=== PATIENT | female | born 1990 | race American Indian/Alaskan Native ===

== ENCOUNTER 2017-05-11 23:22 | Emergency (ER) | payer OTHER ==
[2017-05-11 23:51] VITALS: BP 104/60
[2017-05-12] MEDS ORDERED: DELTASONE PO ONE (01:10)
--- NOTE | 2017-05-12 01:10 | Emergency Department Report ---
ED Rash HPI - HPI Chief Complaint: Skin Rash Stated Complaint: BODY HIVES Time Seen by Provider: 05/12/17 01:07 Duration: 2 weeks Location: Chest, Back, Abdomen, Upper Extremities, Lower Extremities Suspected Cause: Unknown Rash Symptoms: Yes Itching (all over), No Facial Swelling, No Tongue/Oral Swelling, No Breathing Difficulties, No Choking Sensation, No Wheezing/Dyspnea, No Peeling, No Blistering, No Fever, No Lightheaded, No Malaise, No Myalgias Severity: moderate (H in. Pain is 0 out of 10) Other History: Patient he reported that she's had rash and itching over her body for 2 weeks that she doesn't know what causes it. 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 Denies any fever or chills. Pain is 0-10 but she has moderate itching. Immunizations up-to-date per patient. Denies any medical history or any surgical history. Denies any new food, medication or detergent in her environment. No [id number] medication taken. ED Review of Systems ROS: Stated complaint: BODY HIVES Other details as noted in HPI Comment: All other systems reviewed and negative Constitutional: denies: chills, fever, weakness Eyes: denies: eye pain, vision change ENT: denies: ear pain, throat pain, epistaxis, congestion Respiratory: no symptoms reported Cardiovascular: denies: chest pain, palpitations, dyspnea on exertion, orthopnea , edema, syncope Gastrointestinal: denies: abdominal pain, nausea, vomiting, diarrhea Musculoskeletal: denies: back pain, joint swelling, arthralgia, myalgia Skin: rash, pruritus Neurological: denies: headache, numbness, paresthesias, confusion, abnormal gait , vertigo ED Past Medical Hx - Past Medical History Previous Medical History?: No - Surgical History Past Surgical History?: No - Family History Family history: no significant - Social History Smoking Status: Current Every Day Smoker Substance Use Type: None Other Social History: single - Medications Home Medications: Home Medications Medication Instructions Recorded Confirmed Last Taken Type Promethazine [Phenergan] 25 mg PO Q6H PRN #10 tablet 04/11/14 Unknown Rx hydrOXYzine HCL [Atarax] 25 mg PO Q6HR PRN #12 tablet 05/12/17 Unknown Rx predniSONE [Deltasone] 50 mg PO QDAY #5 tab 05/12/17 Unknown Rx Rash Exam - Exam General: Vital signs noted. No distress. Alert and acting appropriately. This is a 26-year-old female well-nourished well-developed in no acute distress HEENT: No Periorbital Edema, No Conjuctival Injection, No Chemosis, No Perioral Edema, No Tongue Edema, No Uvular Edema, No Compromised Airway, No Drooling Lungs: Yes Good Air Exchange, No Wheezes, No Ronchi, No Stridor, No Cough, No Labored Respirations, No Retractions, No Use of Accessory Muscles, No Other Abnormal Lung Sounds Heart: Yes Regular, No Murmur Skin: Yes Maculopapular Rash (maculopapular rash scattered sparsely to posterior and anterior torso, upper and lower extremities. Induration or fluctuance.), Yes Excoriations (some excoriation due to itching and), Yes Erythema (located around some rash to torso), No Urticarial Rash, No Morbilliform rash, No Bulla(e), No Weeping, No Tenderness, No Edema, No Encrustations, No Other Other: Positive: Abdomen Normal, Neurologic Normal, Musculoskeletal Normal ED Course Vital Signs 05/11/17 23:46 Temperature 98 F Pulse Rate 81 Respiratory 16 Rate Blood Pressure 104/60 Blood Pressure 104/60 [Left] O2 Sat by Pulse 99 Oximetry - Reevaluation(s) Reevaluation #1: 05/12/17 01:46 Patient given Deltasone 60 mg by mouth. ED Medical Decision Making - Medical Decision Making ED course: Patient care complaining of rash and itching to her body 2 weeks. She does not know cause of rash but relates it to her being working in a warehouse and may be came in contact something that she is allergic to. Doesn' t have any signs of anaphylaxis. Rash is localized to anterior and posterior torso and upper and lower extremities. Discussed the patient that she will need to follow up with the creative services writer or veterans' coordinator to get skin testing. She does not have a primary care physician R access to one side told her that she needs to follow up at [facility] for further evaluation and treatment and follow-up rash. Patient voiced understanding of discharge instruction and treatment plan. He was given Deltasone 60 mg by mouth and emergency room. I encourage her to keep affected area clean and dry. Diagnostic/labs :no need for any labs or diagnostic test. Assessment/plan 1: Contact dermatitis-patient given Deltasone 60 mg at emergency room and placed on prednisone for 5 days 2:Pruritis-Atarax when necessary. Follow-up with veterans' coordinator or creative services writer. If you do not have access to do this that he can follow-up at [facility]. These keep affected area clean and dry. Take medication as prescribed Pt discharged home in stable condition with prescription for Atarax and prednisone Critical care attestation.: If time is entered above; I have spent that time in minutes in the direct care of this critically ill patient, excluding procedure time. ED Disposition Clinical Impression: Pruritic disorder Contact dermatitis Qualifiers: Contact dermatitis type: unspecified Contact dermatitis trigger: unspecified trigger Qualified Code(s): L25.9 - Unspecified contact dermatitis, unspecified cause Disposition: DC-01 TO HOME OR SELFCARE Is pt being admited?: No Does the pt Need Aspirin: No Condition: Stable Instructions: Itchy Skin (ED), Contact Dermatitis (ED) Additional Instructions: follow-up with veterans' coordinator or creative services writer to get skin testing in regard skin rash If you do not have access to veterans' coordinator or creative services writer he can follow up for [facility]. Please take medication as prescribed Keep affected area clean and dry Prescriptions: hydrOXYzine HCL [Atarax] 25 mg PO Q6HR PRN #12 tablet PRN Reason: Itching predniSONE [Deltasone] 50 mg PO QDAY #5 tab Referrals: [facility] [Outside] - 2-3 Days JOSE R WILKERSON MD [Staff Physician] - 2-3 Days Forms: Work/School Release Form(ED)
== END 2017-05-12 02:28 | disposition home or self-care (01) ==
LOC: ED 23:22
DX: L25.9 Unspecified contact dermatitis, unspecified cause (principal); L29.9 Pruritus, unspecified; F17.200 Nicotine dependence, unspecified, uncomplicated
CPT/HCPCS: 99282; J7512

== ENCOUNTER 2018-01-26 21:07 | Emergency (ER) | payer SELFPAY ==
[2018-01-26] MEDS ORDERED: ZOFRAN IV ONE (21:51)
[2018-01-26 22:02] LABS: Basophils % (Auto) 0.3 % (0.0-1.8); Eosinophils # (Auto) 0.1 K/mm3 (0.0-0.4); Eosinophils % (Auto) 1.8 % (0.0-4.3); Hematocrit 40.1 % (30.3-42.9); Hemoglobin 13.7 gm/dl (10.1-14.3); Lymphocytes # (Auto) 1.4 K/mm3 (1.2-5.4); Lymphocytes % (Auto) 18.5 % (13.4-35.0); Mean Corpuscular HGB Conc 34 % (30-34); Mean Corpuscular Hemoglobin 33 pg (28-32); Mean Corpuscular Volume 96 fl (79-97); Monocytes # (Auto) 0.7 K/mm3 (0.0-0.8); Monocytes % (Auto) 9.7 % (0.0-7.3); Platelet Count 162 K/mm3 (140-440); Red Blood Count 4.19 M/mm3 (3.65-5.03); Red Cell Distribution Width 13.3 % (13.2-15.2)
[2018-01-26 22:22] LABS: Alanine Aminotransferase 7 units/L (7-56); Albumin 4.4 g/dL (3.9-5); BUN/Creatinine Ratio 17; Blood Urea Nitrogen 12 mg/dL (7-17); Calcium 8.9 mg/dL (8.4-10.2); Hemolysis Index 4; Lipase 21 units/L (13-60)
[2018-01-27 02:01] VITALS: BP 90/49
[2018-01-27 02:42] LABS: Bilirubin,Urine NEG (Negative); Blood,Urine NEG (Negative); Color,Urine Yellow (Yellow); Mucus,Urine 3+ /HPF; Protein,Urine <15 mg/dL mg/dL (Negative); Urobilinogen,Urine < 2.0 mg/dL (<2.0)
--- NOTE | 2018-01-27 04:28 | Cat Scan Report ---
FINAL REPORT PROCEDURE: CT ABDOMEN PELVIS WO CON TECHNIQUE: Computerized axial tomography of the abdomen and pelvis was performed without intravenous contrast. This study is performed without intravascular contrast material and its sensitivity for abdominal and pelvic pathology, including neoplasms, inflammation, abscess, free fluid, thrombosis, arterial dissection and infarction, is reduced compared with a contrast enhanced study. HISTORY: generalized abd pain COMPARISON: No prior studies are available for comparison. FINDINGS: Visualized lower thorax: No significant abnormality. Liver: Normal size and attenuation. Spleen: Normal size and attenuation. Gallbladder and biliary system: Normal. Pancreas: Normal. Adrenals: Normal. Kidneys: There are no kidney stones. There is no hydronephrosis. GI tract: There is no bowel obstruction, colitis or enteritis. There are tiny stones in the appendix. The appendix appears somewhat thickened at around 9 millimeters. However there are no inflammatory changes. Early appendicitis not excluded. Please correlate with clinical data. If indicated, contrast-enhanced CT may be helpful. Lymph nodes and mesentery: Normal. Vasculature: Normal. Bladder: Normal. Reproductive organs: Uterus and ovaries are unremarkable.. Peritoneum: There is no ascites or free air, abscess or adenopathy.. Musculoskeletal structures: No significant abnormality. Other: None. IMPRESSION: There are no kidney stones. There is no hydronephrosis. There is no bowel obstruction, colitis or enteritis. There are tiny stones in the appendix. The appendix appears somewhat thickened at around 9 millimeters. However there are no inflammatory changes. Early appendicitis not excluded. Please correlate with clinical data. If indicated, contrast-enhanced CT may be helpful. Uterus and ovaries are unremarkable.. There is no ascites or free air, abscess or adenopathy.. .
--- NOTE | 2018-01-27 06:51 | Emergency Department Report ---
ED Abdominal Pain HPI - General Chief Complaint: Abdominal Pain Stated Complaint: ABD PAIN; N/V Time Seen by Provider: 01/27/18 06:09 Source: patient Mode of arrival: Ambulatory Limitations: No Limitations - History of Present Illness Initial Comments: Pt is a 27 yo female who presents with vomiting and diarrhea x 1 day. pt states she had 10 episodes of each. Pt states she may have contracted the illness from her friend who told her she was not feeling well. Pt states she had been smoking and smoked from her friend's passed cigarette and thinks she caught it from her. Pt denied any past medical history or PSHx. MD Complaint: abdominal pain -: Last night Location: diffuse Severity scale (0 -10): 4 - Related Data Previous Rx's Medication Instructions Recorded Last Taken Type Promethazine [Phenergan] 25 mg PO Q6H PRN #10 tablet 04/11/14 Unknown Rx hydrOXYzine HCL [Atarax] 25 mg PO Q6HR PRN #12 tablet 05/12/17 Unknown Rx predniSONE [Deltasone] 50 mg PO QDAY #5 tab 05/12/17 Unknown Rx Allergies Allergy/AdvReac Type Severity Reaction Status Date / Time No Known Allergies Allergy Unverified 04/11/14 12:46 ED Review of Systems ROS: Stated complaint: ABD PAIN; N/V Other details as noted in HPI Constitutional: denies: fever ENT: denies: throat pain Respiratory: denies: cough Cardiovascular: denies: chest pain Endocrine: denies: excessive sweating Gastrointestinal: abdominal pain (diffuse), nausea, vomiting, diarrhea Skin: denies: rash Neurological: denies: weakness ED Past Medical Hx - Past Medical History Previous Medical History?: No Additional medical history: Right Ovarian Cyst, Eczema - Surgical History Past Surgical History?: No - Social History Smoking Status: Current Every Day Smoker Substance Use Type: None - Medications Home Medications: Home Medications Medication Instructions Recorded Confirmed Last Taken Type Promethazine [Phenergan] 25 mg PO Q6H PRN #10 tablet 04/11/14 Unknown Rx hydrOXYzine HCL [Atarax] 25 mg PO Q6HR PRN #12 tablet 05/12/17 Unknown Rx predniSONE [Deltasone] 50 mg PO QDAY #5 tab 05/12/17 Unknown Rx ED Physical Exam - General Limitations: No Limitations General appearance: alert, in no apparent distress - Head Head exam: Present: atraumatic - Eye Eye exam: Present: normal appearance, EOMI - Neck Neck exam: Present: normal inspection - Respiratory Respiratory exam: Present: other (no respiratory distress) - Psychiatric Psychiatric exam: Present: normal affect ED Course Vital Signs 01/26/18 01/26/18 01/27/18 21:08 21:37 01:58 Temperature 98.4 F 98.4 F 97.8 F Pulse Rate 101 H 100 H 64 Respiratory 18 16 20 Rate Blood Pressure 158/79 158/79 Blood Pressure 90/49 [Right] O2 Sat by Pulse 100 99 100 Oximetry 01/27/18 02:04 Temperature Pulse Rate Respiratory 20 Rate Blood Pressure Blood Pressure [Right] O2 Sat by Pulse 100 Oximetry ED Medical Decision Making - Lab Data Result diagrams: 01/26/18 21:48 01/26/18 21:48 - Medical Decision Making Pt was agitated about her wait time when I saw her and she stated she was feeling better and ready to be dc'd home. she stated for me to check her chart for her history and info. I was able to get some information , but pt was sitting at the edge of the bed stating she was leaving because she said her mother had to get home to take her meds. I tried to advise the pt to stay and informed her that her appendix could be inflamed, but she was adamant that she was not staying and was feeling better and ready to go , so she signed out AMA. Pt did not wait for any type of discharge paper work. Critical care attestation.: If time is entered above; I have spent that time in minutes in the direct care of this critically ill patient, excluding procedure time. ED Disposition Clinical Impression: Abdominal pain Disposition: DC-07 LEFT AGAINST MED ADVICE Is pt being admited?: No Condition: Stable Instructions: Abdominal Pain (ED), Vomiting in Children (ED), Acute Diarrhea ( ED), Against Medical Advice (ED) Referrals: CRISTIAN DOBBS MD [Primary Care Provider] - 3-5 Days Forms: Work/School Release Form(ED) Time of Disposition: 06:30
== END 2018-01-27 06:30 | disposition left against medical advice (07) ==
LOC: ED 21:07
DX: R10.84 Generalized abdominal pain (principal); R11.2 Nausea with vomiting, unspecified; R19.7 Diarrhea, unspecified; F17.200 Nicotine dependence, unspecified, uncomplicated
CPT/HCPCS: 36415; 74176; 80053; 81001; 82962; 83690; 84703; 85025; 96374; 99284; J2405

== ENCOUNTER 2020-03-26 22:43 | Outpatient (CLI) | payer MEDICAID ==
[2020-03-26 23:23] VITALS: BP 103/59
[2020-03-26] MEDS ORDERED: LACTATED RINGERS 500 ML IV ONE (23:42)
[2020-03-27] MEDS ORDERED: TERBUTALINE 1 MG/1 ML INJ SUB-Q SCH (00:43)
[2020-03-27 00:46] LABS: Amphetamine Screen,Urine PRESUMPTIVE NEGATIVE; Benzodiazepines Screen,Urine PRESUMPTIVE NEGATIVE; Cocaine Screen,Urine PRESUMPTIVE NEGATIVE; Methadone Screen,Urine PRESUMPTIVE NEGATIVE; Opiate Screen,Urine PRESUMPTIVE NEGATIVE
[2020-03-27] MEDS ORDERED: TERBUTALINE 1 MG/1 ML INJ ONE (00:56)
[2020-03-27 01:07] LABS: Bacteria,Urine 1+ /HPF (Negative); Bilirubin,Urine NEG (Negative); Blood,Urine NEG (Negative); Color,Urine Yellow (Yellow); Mucus,Urine FEW /HPF; Protein,Urine <15 mg/dL mg/dL (Negative)
[2020-03-27 01:10] LABS: Cannabinoid Screen,Urine PRESUMPTIVE POSITIVE
--- NOTE | 2020-03-27 02:38 | Ultrasound Report ---
US OB limited, US OB BPP wo non-stress INDICATION / CLINICAL INFORMATION: labor. COMPARISON: None available. FINDINGS: Single, viable intrauterine in cephalic presentation. heart rate 133. Placenta is anterior and free of the cervical os. Amniotic fluid volume is normal, with a fluid index of 14 cm. Biophysical profile: Breathing movements: 2 movements: 2 posture and tone: 2 Amniotic fluid volume: 2 Total biophysical profile score: 8/8 IMPRESSION: 1. Single, viable third trimester intrauterine . 2. Biophysical profile score 8/8. Signer Name: Chance Adan MD Signed: 03/27/2020 2:34 AM Workstation Name: [id number]
== END 2020-03-27 04:10 | disposition home or self-care (01) ==
LOC: TRG 22:43 → APU 22:48 → TRG 03-27 04:10
PROVIDERS: ATTEND Obstetrics & Gynecology
DX: O26.893 Other specified pregnancy related conditions, third trimester (principal); O60.03 Preterm labor without delivery, third trimester; Z3A.31 31 weeks gestation of pregnancy; Z87.891 Personal history of nicotine dependence; W19.XXXA Unspecified fall, initial encounter; Y93.89 Activity, other specified; Y92.89 Other specified places as the place of occurrence of the external cause; Y99.8 Other external cause status
CPT/HCPCS: 76815; 76819; 80307; 81001; 96372; J3105; J7120

== ENCOUNTER 2021-11-09 12:27 | Emergency (ER) | payer MEDICAID ==
[2021-11-09] MEDS ORDERED: IBUPROFEN 800 MG TAB PO STA (15:21)
[2021-11-09] MEDS ORDERED: ACETAMINOPHEN 500 MG TAB PO STA (15:21)
--- NOTE | 2021-11-09 15:25 | Emergency Department Report ---
ED General Adult HPI - General Chief complaint: Urogenital-Female Stated complaint: VAGINAL PAIN(VULVAR) Time Seen by Provider: 11/09/21 14:43 Source: patient Mode of arrival: Ambulatory Limitations: No Limitations - History of Present Illness Initial comments: 31-year-old -[place] female patient presents with complaints of painful lesion to her vaginal area for the past 3 days. She does report a history of HSV. She describes the pain as burning and states it worsens with urination. No fever/chills/sweats, swelling, or vaginal discharge per patient. She has not tried any OTC medications for symptoms -: Sudden - Related Data Previous Rx's Medication Instructions Recorded Last Taken Type Promethazine [Phenergan] 25 mg PO Q6H PRN #10 tablet 04/11/14 Unknown Rx hydrOXYzine HCL [Atarax] 25 mg PO Q6HR PRN #12 tablet 05/12/17 Unknown Rx predniSONE [Deltasone] 50 mg PO QDAY #5 tab 05/12/17 Unknown Rx Acetaminophen/Codeine [Tylenol 1 tab PO Q8H PRN #8 tab 11/09/21 Unknown Rx /Codeine # 3 tab] Ibuprofen [Motrin 800 MG tab] 800 mg PO Q8HR PRN #20 tablet 11/09/21 Unknown Rx valACYclovir [Valtrex] 1,000 mg PO BID 10 Days #40 tab 11/09/21 Unknown Rx Allergies Allergy/AdvReac Type Severity Reaction Status Date / Time No Known Allergies Allergy Unverified 04/11/14 12:46 ED Review of Systems ROS: Stated complaint: VAGINAL PAIN(VULVAR) Other details as noted in HPI Constitutional: denies: chills, fever, malaise Genitourinary: denies: urgency, hematuria, discharge, abnormal menses Musculoskeletal: denies: back pain Hematological/Lymphatic: denies: swollen glands ED Past Medical Hx - Past Medical History Previous Medical History?: Yes Hx Hypertension: No Hx Diabetes: No Hx Deep Vein Thrombosis: No Hx Renal Disease: No Hx Sickle Cell Disease: No Hx Seizures: No Hx Asthma: No Hx HIV: No Additional medical history: Right Ovarian Cyst, Eczema - Surgical History Past Surgical History?: No - Social History Smoking Status: Former Smoker - Medications Home Medications: Home Medications Medication Instructions Recorded Confirmed Last Taken Type Promethazine [Phenergan] 25 mg PO Q6H PRN #10 tablet 04/11/14 Unknown Rx hydrOXYzine HCL [Atarax] 25 mg PO Q6HR PRN #12 tablet 05/12/17 Unknown Rx predniSONE [Deltasone] 50 mg PO QDAY #5 tab 05/12/17 Unknown Rx Acetaminophen/Codeine [Tylenol 1 tab PO Q8H PRN #8 tab 11/09/21 Unknown Rx /Codeine # 3 tab] Ibuprofen [Motrin 800 MG tab] 800 mg PO Q8HR PRN #20 tablet 11/09/21 Unknown Rx valACYclovir [Valtrex] 1,000 mg PO BID 10 Days #40 tab 11/09/21 Unknown Rx ED Physical Exam - General Limitations: No Limitations General appearance: alert, in no apparent distress - Head Head exam: Present: atraumatic, normocephalic - Eye Eye exam: Present: normal appearance - Respiratory Respiratory exam: Absent: respiratory distress - Cardiovascular Cardiovascular Exam: Present: regular rate - External exam: Present: other (Shallow ulceration noted to the right inner labia minora with tenderness to palpation; no swelling or drainage noted) - Neurological Exam Neurological exam: Present: alert, oriented X3 - Psychiatric Psychiatric exam: Present: normal affect, normal mood - Skin Skin exam: Present: warm, dry, normal color ED Course Vital Signs 11/09/21 14:33 Temperature 98.4 F Pulse Rate 59 L Respiratory 18 Rate Blood Pressure 96/56 O2 Sat by Pulse 100 Oximetry ED Medical Decision Making - Medical Decision Making Herpetic ulceration noted on vaginal exam. Will treat with Valtrex. Recommend follow-up with primary care as needed. She is otherwise well-appearing, her vitals are within normal limits, she is stable for discharge home. Strict return precautions were discussed in detail with patient who verbalizes understanding Critical care attestation.: If time is entered above; I have spent that time in minutes in the direct care of this critically ill patient, excluding procedure time. ED Disposition Clinical Impression: Genital herpes Disposition: 01 HOME / SELF CARE / HOMELESS Is pt being admited?: No Condition: Stable Instructions: Genital Herpes Prescriptions: Ibuprofen [Motrin 800 MG tab] 800 mg PO Q8HR PRN #20 tablet PRN Reason: Pain, Moderate (4-6) Acetaminophen/Codeine [Tylenol /Codeine # 3 tab] 1 tab PO Q8H PRN #8 tab PRN Reason: Pain , Severe (7-10) valACYclovir [Valtrex] 1,000 mg PO BID 10 Days #40 tab Referrals: PRIMARY CARE, [Primary Care Provider] - 3-5 Days [facility] [Provider Group] - 3-5 Days Forms: Work/School Release Form(ED)
[2021-11-09 16:02] VITALS: BP 110/62
== END 2021-11-09 16:02 | disposition home or self-care (01) ==
LOC: ED 12:27
DX: A60.00 Herpesviral infection of urogenital system, unspecified (principal); Z87.891 Personal history of nicotine dependence
CPT/HCPCS: 99282